=== PATIENT | male | born 1960 | race Caucasian/White ===

== ENCOUNTER 2019-11-23 21:12 | Inpatient (IN) | payer OTHER ==
[~2019-11-23] VITALS: Ht 177.8 cm; Wt 124.7 kg
--- NOTE | 2019-11-23 21:13 | NUR ---
PT JAYNE YOUNGBLOOD. TAKEN TO BED 12
[2019-11-23 21:25] VITALS: BP 142/80
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
--- NOTE | 2019-11-23 21:30 | NUR ---
ERMD AT BEDSIDE
[2019-11-23] MEDS ORDERED: MORPHINE SULFATE 4 MG/ML SYR ONE ×2 (21:55→22:17)
--- NOTE | 2019-11-23 22:03 | NUR ---
PT GIVEN 4MG OF MORPHINE. ORDER IN ORDER LIST. NOT PULLING UP IN EMAR. PT PAIN 10/10. IV LEFT UPPER ARM. PAIN INCREASE ON MOVEMENT. WILL CONTINUE TO MONITOR.
[2019-11-23] MEDS ORDERED: MORPHINE SULFATE 4 MG/ML SYR IVP ONE (22:15)
--- NOTE | 2019-11-23 22:22 | NUR ---
PT IN XRAY UNABLE TO LAY FLAT. DR. ROA ORDERED ADDITIONAL 4MG OF MORPHINE. PT GIVEN 4MG OF MORPHINE AGAIN. ORDER IN ORDER LIST. NOT POPPING UP IN EMAR. PT STATES PAIN 10/10. IV IN LEFT UPPER FOREARM. WILL CONTINUE TO MONITOR.
--- NOTE | 2019-11-23 22:47 | NUR ---
SPOKE WITH DAUGHTER RA, RA INFORMED [facility]. RA WILL BRING PT MEDICATION, INSURANCE CARD AND BELONGINGS.
--- NOTE | 2019-11-23 22:55 | NUR ---
Dr. Boyce examining patient.
[2019-11-23 22:58] LABS: BASOPHILS # (AUTO) 0.1 K/uL (0.00-0.22); EOSINOPHILS # (AUTO) 0.1 K/uL (0-0.4); EOSINOPHILS % (AUTO) 0.7 % (0.0-4.0); HEMATOCRIT 42.5 % (36-52); HEMOGLOBIN 14.2 g/dL (12.0-18.0); LYMPHOCYTES % (AUTO) 18.9 % (20.5-51.1); MEAN CORPUSCULAR HEMOGLOBIN 31 pg (27-31); MEAN CORPUSCULAR HGB CONC 33 g/dL (33-37); MONOCYTES # (AUTO) 0.7 K/uL (0.8-1.0); MONOCYTES % (AUTO) 6.4 % (1.7-9.3); NEUTROPHILS # (AUTO) 7.7 K/uL (1.8-7.7); PLATELET COUNT (AUTO) 241 K/uL (140-450); RED BLOOD CELL COUNT(AUTO) 4.62 MIL/uL (4.20-6.10); RED CELL DISTRIBUTION WIDTH 15.1 % (11.6-13.7); WHITE BLOOD COUNT (AUTO) 10.5 K/uL (4.8-10.8)
--- NOTE | 2019-11-23 23:00 | NUR ---
PT RESTING IN BED. DENIED WANTING MORE PAIN MEDICATION DESPITE 10/10 CONSISTENT PAIN. EQUAL CHEST RISE AND FALL. POSITIONED PT FOR COMFORT.
--- NOTE | 2019-11-23 23:00 | NUR ---
Note sungone in EDM - 11/24/19 at 0020 by AYANAGAParesh PT RESTING IN BED. DENIED WANTING MORE PAIN MEDICATION DESPITE 04/17 CONSISTENT PAIN. EQUAL CHEST RISE AND FALL. POSITIONED PT FOR COMFORT.
[2019-11-23 23:13] LABS: ALBUMIN 3.5 g/dL (3.4-5.0); ANION GAP 9.9 (8-16); CREATININE 1.3 mg/dL (0.6-1.3); POTASSIUM 4.9 mmol/L (3.5-5.1); TOTAL BILIRUBIN 0.3 mg/dL (0.0-1.0)
[2019-11-23] MEDS ORDERED: HYDR10TA1 PO (23:30)
--- NOTE | 2019-11-23 23:30 | NUR ---
PT REQUESTING DNR ORDER. YOUD MADE AWARE.
[2019-11-24] MEDS ORDERED: MORPHINE SULFATE 2 MG/ML SYR ONE (00:20)
[2019-11-24] MEDS ORDERED: MORPHINE SULFATE 4 MG/ML SYR IVP ONE (00:20)
--- NOTE | 2019-11-24 00:21 | NUR ---
PT REQUESTING MORE PAIN MEDIATION. ERMD MADE AWARE
--- NOTE | 2019-11-24 00:25 | NUR ---
RECEIVED PATIENT FROM ER NURSE. PATIENT TRANSPORTED VIA GURNEY. PATIENT ALERT, ORIENTED X 4. ON ROOM AIR, RESPIRATIONS EVEN AND UNLABORED. PATIENT NOTED WITH LEFT MAHER SKIN TEAR, NO DRESSING IN PLACE. PATIENT ON BED REST. PATIENT NOTED WITH SEVERE PAIN. PATIENT RECEIVED MORPHINE FROM ER DEPT. WITH SALINE LOCK IN PLACE, PATENT AND INTACT. VITAL SIGNS STABLE. SAFETY MEASURES IN PLACE. CALL LIGHT WITHIN REACH. REVIEWED PLAN OF CARE TO PATIENT. VERBALIZED UNDERSTANDING. WILL CONTINUE TO MONITOR PATIENT. Addendum: 11/24/19 at 0251 by Rosie Olivares RN WRONG TIME CORRECTED TIME: 51
[2019-11-24 00:52] VITALS: BP 105/59
--- NOTE | 2019-11-24 00:52 | NUR ---
Patient will be admitted to [facility]. Admited to [facility]. Will go to room 125 B. Belongings list completed. Report to ISHAN DUMONT AND ISHAN SHEFFIELD.
--- NOTE | 2019-11-24 01:00 | NUR ---
PATIENT'S WANTS TO BE DNR. EXPLAINED TO PATIENT WHAT'S DNR MEANS. PATIENT VERBALIZED UNDERSTANDING.
[2019-11-24] MEDS ORDERED: ONDANSETRON 4 MG/2 ML VIAL IVP PRN (01:35)
[2019-11-24] MEDS ORDERED: ACETAMINOPHEN 325 MG TAB PO PRN (01:35)
--- NOTE | 2019-11-24 03:00 | NUR ---
CHECKED PATIENT AND IS SLEEPING. NO SIGNS OF DISTRESS NOTED. CALL LIGHT WITHIN REACH. WILL CONTINUE TO MONITOR PATIENT.
[2019-11-24] MEDS: KETOROLAC 15 MG/ML VIAL IVP PRN ×2 (04:39→19:28)
--- NOTE | 2019-11-24 04:39 | NUR ---
PATIENT COMPLAINED OF RIGHT HIP PAIN. MEDICATED PATIENT WITH TORADOL PER ORDER. WILL REASSESS AND CONTINUE TO MONITOR PATIENT.
[2019-11-24 06:20] LABS: ALBUMIN 3.3 g/dL (3.4-5.0); ANION GAP 8.1 (8-16); CARBON DIOXIDE 31.5 mmol/L (21-32); CREATININE 1.1 mg/dL (0.6-1.3); POTASSIUM 4.6 mmol/L (3.5-5.1); TOTAL BILIRUBIN 0.6 mg/dL (0.0-1.0)
[2019-11-24 06:21] LABS: BASOPHILS # (AUTO) 0.1 K/uL (0.00-0.22); BASOPHILS % (AUTO) 1.1 % (0.0-2.0); EOSINOPHILS # (AUTO) 0.2 K/uL (0-0.4); EOSINOPHILS % (AUTO) 1.5 % (0.0-4.0); HEMATOCRIT 39.1 % (36-52); HEMOGLOBIN 13.2 g/dL (12.0-18.0); LYMPHOCYTES # (AUTO) 2.2 K/uL (2.0-11.5); LYMPHOCYTES % (AUTO) 19.4 % (20.5-51.1); MEAN CORPUSCULAR HEMOGLOBIN 31 pg (27-31); MEAN CORPUSCULAR HGB CONC 34 g/dL (33-37); MEAN CORPUSCULAR VOLUME 92.7 fL (80-94); MONOCYTES % (AUTO) 8.5 % (1.7-9.3); NEUTROPHILS % (AUTO) 69.5 % (42.2-75.2); PLATELET COUNT (AUTO) 284 K/uL (140-450); RED BLOOD CELL COUNT(AUTO) 4.22 MIL/uL (4.20-6.10); RED CELL DISTRIBUTION WIDTH 14.9 % (11.6-13.7)
[2019-11-24 06:49] LABS: PROTHROMBIN TIME 9.9 secs (10.8-13.4)
[2019-11-24 06:57] LABS: WHITE BLOOD COUNT (AUTO) 11.5 K/uL (4.8-10.8)
--- NOTE | 2019-11-24 07:22 | NUR ---
PT IS STABLE. ENDORSED PATIENT TO DAY SHIFT NURSE FOR CONTINUITY OF CARE.
--- NOTE | 2019-11-24 07:23 | NUR ---
RECEIVED REPORT FROM COURTESY VAN DRIVER NURSE, FOR CONTINUITY OF CARE. PT IS LYING IN BED SUPINE, AA&OX4. RESPIRATIONS EVEN AND UNLABORED, BREATHING TO RA. SKIN COLOR APPROPRIATE FOR ETHNICITY. L MAHER SKIN TEAR, NOTED; SANDRITA. L FOREARM 20G SALINE LOCK IV, PATENT AND INTACT. REVIEWED PLAN OF CARE WITH PT. SAFETY MEASURES IN PLACE; CALL LIGHT WITHIN REACH, BED IN LOW POSITION. WILL CONTINUE TO MONITOR.
[2019-11-24 08:00] VITALS: BP 132/72
--- NOTE | 2019-11-24 09:24 | NUR ---
PATIENT HAS BEEN SCREENED AND CATEGORIZED MODERATE NUTRITION RISK. PATIENT WILL BE SEEN WITHIN 3-5 DAYS OF ADMISSION. 11/26/19 11/28/[address]
[2019-11-24] MEDS: HYDROCORTISONE 10 MG TAB PO SCH ×2 (09:34→20:11)
--- NOTE | 2019-11-24 09:38 | NUR ---
PT'S SCHEDULED PO HYDROCORTISONE GIVEN; MEDICATION EDUCATION PROVIDED. PT TOLERATED PO MEDS WELL. PT IS REQUESTING STRONGER PAIN MEDICATION, BUT STATES HE DOES NOT NEED PAIN MEDICATION AT THIS TIME. PT ALSO STATED THAT HE TAKES AMLODIPINE 10 MG AT HOME FOR HIGH BP. WILL CALL NO ACUTE DISTRESS NOTED. WILL CONTINUE TO MONITOR.
--- NOTE | 2019-11-24 11:15 | NUR ---
PT IS REQUESTING A MEDICATION FOR ANXIETY, AND A STRONGER PAIN MEDICATION. PT ALSO STATED THAT HE NEEDS TO TAKE HIS HOME BP MEDICATION. PAGED TACTICAL RESPONSE GROUP OFFICER
[2019-11-24] MEDS ORDERED: MORPHINE SULFATE 2 MG/ML SYR IVP PRN (12:20)
--- NOTE | 2019-11-24 13:30 | NUR ---
PT COMPLAINS OF PAIN. 2MG IVP MORPHINE ADMINISTERED, PER DR WILLIAMSON'S ORDERS. PT REQUESTED TURKEY AND MASHED POTATOES FOR DINNER, FNS CALLED. WILL REASSESS PAIN. NO ACUTE DISTRESS NOTED. WILL CONTINUE TO MONITOR.
[2019-11-24 16:00] VITALS: BP 131/74
--- NOTE | 2019-11-24 16:02 | NUR ---
DISCHARGE PLANNING: RECEIVED A CALL FROM ALANNAH DUGAN OF [facility], STATING THAT PATIENT NEEDS TO BE TRANSFERRED TO [facility]. SHE PROVIDED ME WITH [facility] FAX NUMBER [phone]. CLINICALS FAXED TO THE PROVIDED NUMBER. PROVIDED HER WITH THE UNIT'S PHONE NUMBER ONCE BED IS AVAILABLE. Addendum: 11/24/19 at 1631 by Marissa Miller CHARGE NURSE MADE AWARE. Addendum: 11/26/19 at 1016 by Marissa Miller RECEIVED A CALL FROM ALANNAH DUGAN OF [facility], UPDATED HER OF THE PATIENT'S CONDITION. INFORMED HER THAT PATIENT WILL HAVE PT EVALUATION TODAY, AND DC PLAN PENDING ON PT'S RECOMMENDATION. Addendum: 11/27/19 at 1204 by Soo Ivey CM DC PLANNING: CALLED RITCHIE ALANNAH AT [facility] [phone] NOTIFIED HER PATIENT HAS ORDER TO GO HOME WITH [facility] AND PATIENT NEEDS WALKER. FAXED ALL THE REQUEST [phone] Addendum: 11/27/19 at 1559 by Rosalina Marques CM CALLED [facility] OFFICE TO SCHEDULE A FOLLOW UP APPOINTMENT FOR PATIENT WAS UNABLE TO REACH PROVIDER, LEFT A VOICEMAIL FOR PROVIDER TO CALL BACK. [phone] Addendum: 11/27/19 at 1621 by Soo Ivey CM DC PLANNING: CALLED [facility] [phone] SPOKE WITH LIV MUHAMMAD ACCEPTED PATIENT AUTH # FROM [facility] [id number] PT CAN BE DISCHARGED HOME TODAY AND [facility] WILL FOLLOW UP WITH IN 48 HRS. Addendum: 12/02/19 at 1609 by Rosalina Marques CM CALLED [facility] AT [phone] TO SCHEDULE APPOINTMENT BUT NO ANSWER, LEFT A VOICEMAIL FOR THEM TO CALL ME BACK. I WILL FOLLOW UP IN THE MORNING. Addendum: 12/03/19 at 0935 by Rosalina Marques CM SPOKE TO NANCY AT THE [facility] OFFICE PATIENT IS SCHEDULED FOR APPOINTMENT ON December AT 3:00 PM. CALLED PATIENT AND LEFT A MESSAGE. TELEPHONE NUMBER ON FACESHEET IS INCORRECT. HIS DAUGHTER RA PROVIDED ME WITH THE CORRECT NUMBER [phone].
[2019-11-24] MEDS ORDERED: ACET-1182 PO (16:11)
[2019-11-24] MEDS ORDERED: AMLO5TAB6 PO (16:11)
--- NOTE | 2019-11-24 16:46 | NUR ---
LYNNE FROM [facility] SAID PATIENT WILL STAY BECAUSE ITS A WRONG PATIENT.
[2019-11-24] MEDS: LORazepam 0.5 MG TAB PO PRN ×2 (17:28→22:04)
--- NOTE | 2019-11-24 17:28 | NUR ---
PT COMPLAINS OF ANXIETY; PRN ATIVAN ADMINISTERED. WILL REMAIN WITH PT UNTIL ANXIETY STARTS TO SUBSIDE. SAFETY MEASURES IN PLACES.
--- NOTE | 2019-11-24 17:41 | NUR ---
PAGED DR. ZAMORA CANNOT LEAVE MESSAGE ON THE SYSTEM, NOTIFIED DR. WILLIAMSON AND MADE AWARE.
--- NOTE | 2019-11-24 18:17 | NUR ---
[facility] nurse air cargo specialist supervisor Rajani notified that Dr. Gomez need to transfer patient to [facility] surge bed under Dr. Pablo. She said no bed available, they are holding patients in ER.
--- NOTE | 2019-11-24 19:19 | NUR ---
GAVE BEDSIDE REPORT TO CRTS NURSE FOR CONTINUITY OF CARE. PT IS IN STABLE CONDITION.
--- NOTE | 2019-11-24 19:20 | NUR ---
RECEIVED REPORT FROM AM SHIFT, AMY NURSE, FOR CONTINUITY OF CARE. PT IS LYING IN BED SUPINE, AA&OX4. GUARDING ON THE RIGHT LE, LE HAS NO IMMOBILIZER. RESPIRATIONS EVEN AND UNLABORED, BREATHING TO RA. SKIN COLOR APPROPRIATE FOR ETHNICITY. L MAHER SKIN TEAR, NOTED; [facility]. L FOREARM 20G SALINE LOCK IV, PATENT AND INTACT. REVIEWED PLAN OF CARE WITH PT. SAFETY MEASURES IN PLACE; CALL LIGHT WITHIN REACH, BED IN LOW POSITION. WILL CONTINUE TO MONITOR.
--- NOTE | 2019-11-24 19:25 | NUR ---
PT C/O PAIN ON THE RIGHT LE 04/17 WILL ADMINISTER DUE PAIN MEDS
--- NOTE | 2019-11-24 22:01 | NUR ---
PT ANXIOUS, NOT ABLE TO SLEEP BEC OF THE PAIN, WILL ADMINISTER ATIVAN PRN FOR ANXIETY
[2019-11-25] VITALS: BP 136/70
--- NOTE | 2019-11-25 00:36 | NUR ---
WILL 2ND DOSE OF POTASSIUM CHLORIDE, PT TOLERATED WELL Addendum: 11/25/19 at 0125 by Jeannine tSuart RN WILL ADMINISTER
--- NOTE | 2019-11-25 01:00 | NUR ---
ASTROBIOLOGIST RUBA SAID THAT EDDI ARRANGED WITH ORTHOPAEDIST TO HAVE SURGERY AT 0800 AM. SHE SAID TO GET CONSENT OF PATIENT. AND TO HAVE LABS PREPARED. THERE IS NO DISCHARGE TO BE DONE AT [facility]. [facility] SURGERY TO BE DONE HERE AT [place]
--- NOTE | 2019-11-25 01:16 | NUR ---
THERE IS NO ORDER FOR BLOOD YET, AND TYPE AND SCREEN, SO THIS LAB WAS NOT DONE, PENDING 'S ORDER
--- NOTE | 2019-11-25 02:11 | NUR ---
PT WAS ASLEEP EARLIER, AND TRYING TO GET BACK TO SLEEP, PLACED COMFORTABLY IN BED, ARRANGED HIS BLANKETS FOR COMFORT. PLACED CALL LIGHT WITHIN REACH.
[2019-11-25 03:55] VITALS: BP 137/69
--- NOTE | 2019-11-25 05:22 | NUR ---
PT AWAKE,SUPINE, NO COMPLAINTS AT THIS TIME, NO RESPIRATORY DISTRESS WILL CONTINUE TO MONITOR,
--- NOTE | 2019-11-25 06:15 | NUR ---
SPOKE TO DR. QUEZADA GRADUATE ASSISTANT ATHLETIC TRAINER FOR Fernando WILLIAMSON, WAS INFORMED THAT DR. WILLIAMSON PRIOR TO EVERYTHING (SCHEDULE ORIFF 0800AM AT [place]) HAD AN ORDER TO TRANSFER TO [facility]. I ASKED HIM IF HE WANTS TO GO AHEAD WITH THE TRANSFER TO [facility]. ALSO INFORMED DR. QUEZADA THAT AT THIS TIME " THERE ARE NO BEDS AVAILABLE" AT [facility] RIGHT NOW AND DR. QUEZADA SAID TO TRANSFER TO [facility] OR TO ANY HOSPITAL STAT. WILL INFORM THE SHELL TRIM OPERATOR : STAT TRANSFER AND TO LOOK FOR A BED AT [facility] OR ANY HOSPITAL Addendum: 11/25/19 at 0645 by Jeannine Stuart RN AMEND TIME TO 0618
--- NOTE | 2019-11-25 06:17 | NUR ---
BLACK KUMAR OF [facility] THAT SERGE WOULD LIKE TO TALK TO PARTITION ASSEMBLER FOR DR. WILLIAMSON. PER FAMILY PROTECTION SPECIALIST RUBA THE 0800AM SCHEDULE IS CANCELLED BECAUSE DR. AGUILAR CANNOT MAKE IT.
--- NOTE | 2019-11-25 06:53 | NUR ---
PT A, AO X 4, PT IN BED FLAT, NO RESPIRATORY DISTRESS, NO COMPLAINTS OF PAIN AT THIS TIME. ORDERD TOP TO BE TRANSFERRED TO ANOTHER HOSPITAL OR [facility]. CALL CENTER MANAGER WILL BE ON THE CASE.
--- NOTE | 2019-11-25 07:04 | NUR ---
TO CM: DR. DENTON CALLED UP AND HE SUGGESTED [facility] UNDER ORTHOPEDIST DR. CANTU IF THERE ARE NO AVAILABLE BEDS AT [facility].
[2019-11-25] MEDS: KETOROLAC 15 MG/ML VIAL IVP PRN ×2 (07:05→17:05)
--- NOTE | 2019-11-25 07:27 | NUR ---
TALKED TO LIV CHARGE NURSE OF OR, AND SHE SAID THAT DR. DENTON SAID THAT HE IS NOT SURE WHAT TIME HE IS GOING TO DO THE OR TODAY. ALSO, IT WAS MENTIONED BY DR. DENTON PER DARLIN PECK THAT IF WE DO THE TRANSFER ANITA THEN TO GO AHEAD W/ THE TRANSFER, WHICHEVER GOES FIRST. Addendum: 11/25/19 at 0743 by Jeannine Stuart RN DR. AGUILAR
--- NOTE | 2019-11-25 07:29 | NUR ---
DR. WILLIAMSON INFORMED THAT DR. AGUILAR SAID THAT HE WILL HAVE THE OR HERE AT [facility], BUT HE DOES NOT KNOW THE TIME YET. DR. WILLIAMSON SAID HE ALREADY TALKED TO DR. AGUILAR AND HE MIGHT DO IT IN THE AFTERNOON TODAY.
--- NOTE | 2019-11-25 07:30 | NUR ---
RECEIVED REPORT FROM RECORDS COORDINATOR RNJAMES, FOR CONTINUITY OF CARE. PT IS LYING IN BED SUPINE, AA&OX4. GUARDING ON THE RIGHT LE, LE HAS NO IMMOBILIZER. RESPIRATIONS EVEN AND UNLABORED, BREATHING TO RA. SKIN COLOR APPROPRIATE FOR ETHNICITY. L MAHER SKIN TEAR, NOTED; INCLINED RAILWAY OPERATOR. L FOREARM 20G SALINE LOCK IV, PATENT AND INTACT. REVIEWED PLAN OF CARE WITH PT. SAFETY MEASURES IN PLACE; CALL LIGHT WITHIN REACH, BED IN LOW POSITION. WILL CONTINUE TO MONITOR.
[2019-11-25 08:00] VITALS: BP 120/77
[2019-11-25] MEDS: HYDROCORTISONE 10 MG TAB PO SCH ×2 (09:42→21:49)
[2019-11-25] MEDS: amLODIPine 5 MG TAB PO SCH (09:42)
--- NOTE | 2019-11-25 09:50 | NUR ---
MORNING MEDICATIONS GIVEN. NO SIGNS OF DISTRESS NOTED. BP 120/75, HR 62. WILL CONTINUE TO MONITOR.
--- NOTE | 2019-11-25 11:20 | NUR ---
PRE-OPERATIVE ASSESSMENT DONE. NO SIGNS OF DISTRESS NOTED. WILL CONTINUE TO MONITOR.
--- NOTE | 2019-11-25 12:30 | NUR ---
PT. IS OFF THE UNIT FOR ORIF PROCEDURE. NO SIGNS OF DISTRESS NOTED. WILL CONTINUE TO MONITOR.
[2019-11-25] MEDS ORDERED: BACITRACIN 50000 UNITS/1 VIAL ONE (12:31)
[2019-11-25] MEDS ORDERED: ROCURONIUM 50 MG/5 ML VIAL IV ONE (12:48)
[2019-11-25] MEDS ORDERED: PROPOFOL 200 MG/20 ML VIAL IV ONE (12:48)
[2019-11-25] MEDS ORDERED: SEVOFLURANE 250 ML BTL INH ONE (12:48)
[2019-11-25] MEDS ORDERED: ONDANSETRON 4 MG/2 ML VIAL ONE (12:48)
[2019-11-25] MEDS ORDERED: fentaNYL 0.05 MG/ML VIAL ONE (12:48)
[2019-11-25] MEDS ORDERED: DEXAMETHASONE 4 MG/ML VIAL ONE (12:48)
[2019-11-25] MEDS: BUPIVACAINE-MPF 0.5% 30 ML VIAL INJ ONE ×2 (13:10→15:43)
[2019-11-25] MEDS ORDERED: NEOMYCIN/POLYMYXIN/DEXAMETH OP 3.5 GM TUBE ONE (15:11)
[2019-11-25] MEDS ORDERED: NEOMYCIN/POLYMYXIN/BACITRACIN OIN 15 GM TUBE TP ONE (15:12)
[2019-11-25] MEDS ORDERED: NACL 0.9% 1,000 ML IV SCH (15:43)
[2019-11-25] MEDS: LACTATED RINGERS 1,000 ML IV SCH (15:43)
[2019-11-25] MEDS ORDERED: HYDROmorphone 1 MG/ML AMP IVP PRN (15:45)
[2019-11-25] MEDS ORDERED: ONDANSETRON 4 MG/2 ML VIAL IVP PRN (15:45)
[2019-11-25 16:00] VITALS: BP 125/74
--- NOTE | 2019-11-25 16:30 | NUR ---
PT. IS BACK FROM PROCEDURE. NO SIGNS OF DISTRESS NOTED. V/S TAKEN BP 121/68, HR 72, O2 STAT OF 91%, TEMP 97.4F, RR 18, PT. VERBALIZES PAIN BUT REFUSED MEDICATION FOR NOW. WILL CONTINUE TO MONITOR.
--- NOTE | 2019-11-25 16:50 | NUR ---
PT. VERBALIZES KNEE PAIN OF 610. OFFERED TORADOL FOR PAIN AND PT. AGREES. WILL MEDICATE.
--- NOTE | 2019-11-25 17:05 | NUR ---
TORADOL IVP PRN GIVEN FOR KNEE PAIN OF 10. BP 125/74, HR 69. NO SIGNS OF DISTRESS NOTED. WILL CONTINUE TO MONITOR.
--- NOTE | 2019-11-25 19:25 | NUR ---
ENDORSED TO TRIMMING INSPECTOR RNPERLA, FOR CONTINUITY OF CARE.
--- NOTE | 2019-11-25 19:26 | NUR ---
RECD. RESTING IN BED, AWAKE, A/OX4. RESPIRATION EVEN AND UNLABORED. IV OF LR AT 120 ML/HR INFUSING, LEFT AC G20, LEFT WRIST WITH SALINE LOCK G20, PATENT AND INTACT. S/P RIGHT ORIF, INCISION IN THE RIGHT HIP COVERED WITH DRESSING DRY AND INTACT. VOIDING WELL. TOLERATING DIET. PAIN IN THE RIGHT SIDE OF HIP, 1/10, AGGRAVATED BY MOVEMENT, NONE WHEN HE IS NOT MOVING. PLAN OF CARE FOR THE SHIFT DISCUSSED. VERBALIZED UNDERSTANDING.
--- NOTE | 2019-11-25 21:00 | NUR ---
Patient's Plan of Care was discussed and reviewed with INFRASTRUCTURE SECURITY ARCHITECT: PERLA FELICIANO
--- NOTE | 2019-11-25 21:49 | NUR ---
WATCHING TV. DUE MEDICATION FOR THE NIGHT GIVEN.
--- NOTE | 2019-11-25 23:35 | NUR ---
REFUSED TO BED MEDICATED WITH TORADOL REQUESTED EARLY. DECIDED TO HAVE IT LATER.
[2019-11-26] VITALS: BP 109/59
[2019-11-26] MEDS: LACTATED RINGERS 1,000 ML IV SCH ×4 (00:03→16:43)
[2019-11-26] MEDS: KETOROLAC 15 MG/ML VIAL IVP PRN ×4 (01:10→21:36)
--- NOTE | 2019-11-26 02:00 | NUR ---
SLEEPING COMFORTABLY IN BED.
--- NOTE | 2019-11-26 04:00 | NUR ---
ENCOURAGED TO TURN TO LEFT SIDE AND SUPINE OCCASIONALLY.
--- NOTE | 2019-11-26 06:00 | NUR ---
IV INFILTRATED, NEW IV LINE INSERTED BY CAITLIN RN AT THE RIGHT HAND G22.
--- NOTE | 2019-11-26 07:25 | NUR ---
RECEIVED REPORT FROM VETERINARY ASSISTANT TECHNICIAN RNPERLA, FOR CONTINUITY OF CARE. PT IS LYING IN BED SUPINE, AA&OX4. PT. VERBALIZES NO PAIN, AND EXPRESSES TO AMBULATE SOON. RESPIRATIONS EVEN AND UNLABORED, BREATHING TO RA. SKIN COLOR APPROPRIATE FOR ETHNICITY. L MAHER SKIN TEAR, NOTED; CDC ASSOCIATE. R HAND 22G WITH LR RUNNING AT 120ML/HR, PATENT AND INTACT. REVIEWED PLAN OF CARE WITH PT. SAFETY MEASURES IN PLACE; CALL LIGHT WITHIN REACH, BED IN LOW POSITION. WILL CONTINUE TO MONITOR.
--- NOTE | 2019-11-26 07:25 | NUR ---
CONDITION REMAIN STABLE. COMPLAINT OF PAIN ATTENDED PROMPTLY. ENDORSED TO AM SHIFT NURSE FOR PAIN REASSESSMENT AND CONTINUITY OF CARE.
[2019-11-26 08:00] VITALS: BP 116/62
[2019-11-26 09:13] LABS: BASOPHILS % (AUTO) 0.2 % (0.0-2.0); HEMOGLOBIN 11.5 g/dL (12.0-18.0); LYMPHOCYTES # (AUTO) 1.6 K/uL (2.0-11.5); LYMPHOCYTES % (AUTO) 12.3 % (20.5-51.1); MEAN CORPUSCULAR HEMOGLOBIN 30 pg (27-31); MEAN CORPUSCULAR HGB CONC 33 g/dL (33-37); MONOCYTES # (AUTO) 0.8 K/uL (0.8-1.0); MONOCYTES % (AUTO) 6.2 % (1.7-9.3); NEUTROPHILS # (AUTO) 10.4 K/uL (1.8-7.7); NEUTROPHILS % (AUTO) 81.3 % (42.2-75.2); PLATELET COUNT (AUTO) 238 K/uL (140-450); RED BLOOD CELL COUNT(AUTO) 3.81 MIL/uL (4.20-6.10); RED CELL DISTRIBUTION WIDTH 15.1 % (11.6-13.7); WHITE BLOOD COUNT (AUTO) 12.8 K/uL (4.8-10.8)
[2019-11-26] MEDS: HYDROCORTISONE 10 MG TAB PO SCH ×2 (09:25→16:46)
--- NOTE | 2019-11-26 09:25 | NUR ---
MORNING MEDICATIONS GIVEN, NO SIGNS OF DISTRESS NOTED. BP 116/62, HR 75. PT. DENIES PAIN. WILL CONTINUE TO MONITOR.
[2019-11-26] MEDS: amLODIPine 5 MG TAB PO SCH (09:26)
[2019-11-26] MEDS: ENOXAPARIN 40 MG/0.4 ML SYR SUBQ SCH (09:33)
[2019-11-26 09:39] LABS: ALBUMIN 2.9 g/dL (3.4-5.0); ANION GAP 14.8 (8-16); CARBON DIOXIDE 24.2 mmol/L (21-32); CREATININE 1.3 mg/dL (0.6-1.3); TOTAL BILIRUBIN 0.5 mg/dL (0.0-1.0)
--- NOTE | 2019-11-26 10:40 | NUR ---
PT. COMPLAINS OF KNEE PAIN 09/15. MEDICATED WITH TYLENOL PRN, NO DISTRESS NOTED. WILL CONTINUE TO MONITOR.
--- NOTE | 2019-11-26 12:30 | NUR ---
SPOKE TO DR. WILLIAMSON ABOUT PT'S BREAKTHROUGH PAIN. NEW ORDERS FOR NORCO PRN Q4H GIVEN. PT. IS AWARE. WILL CONTINUE TO MONITOR.
[2019-11-26] MEDS ORDERED: HYDROcodone/APAP 5/325 MG 1 TAB TAB PO PRN (12:55)
--- NOTE | 2019-11-26 13:20 | NUR ---
GAVE TORADOL PRN FOR KNEE PAIN OF 02/15. BP 125/87, HR 82. NO SIGNS OF DISTRESS NOTED. WILL CONTINUE TO MONITOR.
--- NOTE | 2019-11-26 13:50 | NUR ---
PT'S TURKEY FARMER, DR. WU, CALLED AND SPOKE TO DR. WILLIAMSON ABOUT PT'S HYDROCORTISONE DOSAGE. NEW ORDER FOR HYDROCORTISON TID GIVEN. WILL FOLLOW THROUGH.
[2019-11-26 16:00] VITALS: BP 110/53
--- NOTE | 2019-11-26 16:50 | NUR ---
AFTERNOON MEDICATION GIVEN. NO SIGNS OF DISTRESS NOTED. WILL CONTINUE TO MONITOR.
[2019-11-26] MEDS ORDERED: HYDROCORTISONE 10 MG TAB PO SCH (17:25)
--- NOTE | 2019-11-26 19:15 | NUR ---
RECD. SITTING ON BED, AWAKE, A/OX4. RESPIRATION EVEN AND UNLABORED. IV OF LR INFUSING AT 120 ML/HR RIGHT HAND G22. STATED HE DID WELL DURING AMBULATION TODAY. INCISION IN THE RIGHT HIP COVERED WITH DRESSING, DRY AND INTACT.USES THE URINAL BUT WANTS A BEDSIDE COMMODE. PLAN OF CARE FOR THE SHIFT DISCUSSED. VERBALIZED UNDERSTANDING. PAIN IN THE SITE 07/18, STATED TOLERABLE. NO BM YET BUT PASSING GAS.
--- NOTE | 2019-11-26 19:20 | NUR ---
ENDORSED TO REAL ESTATE SITE ANALYST NURSEPERLA, FOR CONTINUITY OF CARE
--- NOTE | 2019-11-26 19:30 | NUR ---
Patient's Plan of Care was discussed and reviewed with PROOF READER: PERLA FELICIANO
--- NOTE | 2019-11-26 20:30 | NUR ---
BEDSIDE COMMODE PLACED INSIDE THE ROOM BUT INSTRUCTED PATIENT TO BE PROPERLY GUIDED BY PT ON PROPER POSITIONING TO PREVENT FALLS WHEN USING BSC. VERBALIZED UNDERSTANDING.
[2019-11-26] MEDS ORDERED: HYDROCORTISONE NA SUCC 100 MG/2 ML VIAL IV SCH (21:00)
--- NOTE | 2019-11-26 21:36 | NUR ---
PATIENT COMPLAINED OF 8/10 PAIN ON HIS SURGICAL SITE. MEDICATED PATIENT WITH TORADOL PER MD ORDER. WILL REASSESS AND CONTINUE TO MONITOR PATIENT.
[2019-11-27] VITALS: BP 118/63
--- NOTE | 2019-11-27 | NUR ---
SLEEPING COMFORTABLY IN BED.
[2019-11-27] MEDS: LACTATED RINGERS 1,000 ML IV SCH ×3 (01:05→09:23)
[2019-11-27] MEDS: KETOROLAC 15 MG/ML VIAL IVP PRN ×2 (04:39→10:03)
--- NOTE | 2019-11-27 04:39 | NUR ---
PATIENT AWAKE, COMPLAINED OF 8/10 PAIN ON HIS SURGICAL SITE. MEDICATED PATIENT WITH TORADOL PER MD ORDER. WILL REASSESS AND CONTINUE TO MONITOR PATIENT.
[2019-11-27 06:21] LABS: BASOPHILS # (AUTO) 0.1 K/uL (0.00-0.22); BASOPHILS % (AUTO) 0.7 % (0.0-2.0); EOSINOPHILS % (AUTO) 0.2 % (0.0-4.0); HEMATOCRIT 32.7 % (36-52); HEMOGLOBIN 10.6 g/dL (12.0-18.0); LYMPHOCYTES % (AUTO) 20.6 % (20.5-51.1); MEAN CORPUSCULAR HEMOGLOBIN 30 pg (27-31); MEAN CORPUSCULAR HGB CONC 33 g/dL (33-37); MEAN CORPUSCULAR VOLUME 92.7 fL (80-94); MONOCYTES # (AUTO) 0.8 K/uL (0.8-1.0); MONOCYTES % (AUTO) 7.8 % (1.7-9.3); NEUTROPHILS # (AUTO) 6.9 K/uL (1.8-7.7); NEUTROPHILS % (AUTO) 70.7 % (42.2-75.2); PLATELET COUNT (AUTO) 249 K/uL (140-450); RED BLOOD CELL COUNT(AUTO) 3.53 MIL/uL (4.20-6.10); RED CELL DISTRIBUTION WIDTH 14.8 % (11.6-13.7); WHITE BLOOD COUNT (AUTO) 9.7 K/uL (4.8-10.8)
--- NOTE | 2019-11-27 07:00 | NUR ---
ABLE TO SLEEP WELL. CONDITION REMAIN STABLE. WILL ENDORSE TO AM SHIFT NURSE FOR CONTINUITY CARE.
--- NOTE | 2019-11-27 07:18 | NUR ---
RECEIVED REPORT FROM NIGHT NURSE PT IS AAOX4, PT IS STABLE ON ROOM AIR, NO DISTRESS NOTED INTACT IV ON RIGHT HAND G22. SAFETY MEASURES IN PLACE CALL,LIGHT WITHIN REACH.WILL CONTINUE TO MONITOR.
[2019-11-27 08:00] VITALS: BP 115/67
[2019-11-27] MEDS: amLODIPine 5 MG TAB PO SCH (10:02)
[2019-11-27] MEDS: HYDROCORTISONE 10 MG TAB PO SCH ×2 (10:03→13:01)
[2019-11-27] MEDS: ENOXAPARIN 40 MG/0.4 ML SYR SUBQ SCH (10:10)
--- NOTE | 2019-11-27 11:30 | NUR ---
MADE ROUNDS PT IS STABLE AND DOING PT ASSESSMENT AND WALKING WITH THE THERAPIST AT THIS TIME.WILL CONTINUE TO MONITOR.
--- NOTE | 2019-11-27 14:00 | NUR ---
PT DRESSING CHANGED BY DR AGUILAR. DRY AND INTACT. WILL CONTINUE TO MONITOR.
--- NOTE | 2019-11-27 14:30 | NUR ---
INFORMED PT THAT HE WILL BE DISCHARGE TO HOME TODAY.
--- NOTE | 2019-11-27 14:37 | NUR ---
11/27/19 RD INITIAL ASSESSMENT COMPLETED PLEASE REFER TO NUTRITION ASSESSMENT UNDER CARE ACTIVITY FOR ESTIMATED NUTRITIONAL NEEDS. 1. CONTINUE RENAL DIET TOLERATED 2. RD PROVIDED GENERAL HEALTHY NUTRITION EDUCATION. PT ACCEPTED 3. RD TO FOLLOW-UP 5-7 DAYS, LOW RISK ARGENIS PATEL, RD
--- NOTE | 2019-11-27 17:25 | NUR ---
DC INSTRUCTION PROVIDED TO PT AT BEDSIDE, EDUCATED PT TO FOLLOW WITH ORTHO IN 2 WEEKS AND HOME HEALTH PT AFTER DC, MEDICATION REGIMENS, SIDE EFFECT AND TO SEEK MEDICAL HELP IN CASE OF MEDICAL EMERGENCY.ANSWERED ALL PT QUESTIONS AND PT VERBALIZES UNDERSTANDING.REMOVED ALL ID BAND, IV INTACT AND COMPLETE, NO BLEEDING ON IV SITES. PT CHANGED TO OWN CLOTHES,ESCORTED TO FRONT LOBBY PT IS GOING TO DC HOME, PT IS STABLE.
== END 2019-11-27 17:20 | disposition home health service (06) | DRG 481 ==
LOC: MED 21:12 → MMU 11-24 00:05
PROVIDERS: ADMIT Hospitalist; ATTEND Hospitalist
PROC: 0QS636Z Reposition Right Upper Femur with Intramedullary Internal Fixation Device, Percutaneous Approach (ICD-10-PCS; principal; 2019-11-25 12:00)
DX: S72.21XA Displaced subtrochanteric fracture of right femur, initial encounter for closed fracture (principal); E27.40 Unspecified adrenocortical insufficiency; G47.30 Sleep apnea, unspecified; I10 Essential (primary) hypertension; E66.9 Obesity, unspecified; Z85.528 Personal history of other malignant neoplasm of kidney; Z90.5 Acquired absence of kidney; Z68.39 Body mass index [BMI] 39.0-39.9, adult; V28.0XXA Motorcycle driver injured in noncollision transport accident in nontraffic accident, initial encounter; Y92.828 Other wilderness area as the place of occurrence of the external cause; Y93.55 Activity, bike riding; Y99.8 Other external cause status; Z79.899 Other long term (current) drug therapy; Z88.5 Allergy status to narcotic agent
CPT/HCPCS: 36415; 71045; 80053; 84484; 85025; 85610; 87081; 93005; 96374; 96376; 97110; 97112; 97116; 97163-GP; 97530; 99285; C1713; J0690; J1100; J1650; J1885; J2270; J2405; J2704; J3010; J3490; J7060; J7120